=== PATIENT | female | born 1945 | race Caucasian/White ===

== ENCOUNTER 2021-09-05 17:20 | Inpatient (IN) | payer OTHER ==
[~2021-09-05] VITALS: Ht 167.6 cm; Wt 54.0 kg
[2021-09-05 17:24] VITALS: BP_SYST 98
--- NOTE | 2021-09-05 17:35 | NUR ---
Pt waiting for bed to become available. In gurney with medics.
--- NOTE | 2021-09-05 17:41 | NUR ---
Dr. Martinez assessing pt.
[2021-09-05 18:13] LABS: BASOPHILS % (AUTO) 0.2 % (0.0-2.0); EOSINOPHILS # (AUTO) 0.1 K/uL (0.0-0.4); EOSINOPHILS % (AUTO) 1.7 % (0.0-4.0); LYMPHOCYTES # (AUTO) 0.5 K/uL (1.0-5.5); MEAN CORPUSCULAR HEMOGLOBIN 29 pg (27-31); MEAN CORPUSCULAR HGB CONC 34 % (32-36); MEAN CORPUSCULAR VOLUME 85 fL (79.0-98.0); MONOCYTES # (AUTO) 0.5 K/uL (0.0-1.0); MONOCYTES % (AUTO) 9.6 % (1.7-9.3); NEUTROPHILS # (AUTO) 4.3 K/uL (1.8-7.7); NEUTROPHILS % (AUTO) 79.5 % (40.0-70.0); PLATELET COUNT (AUTO) 310 K/uL (130-430); RED BLOOD CELL COUNT(AUTO) 2.18 MIL/uL (4.2-6.2); RED CELL DISTRIBUTION WIDTH 17.2 % (9.0-15.0); WHITE BLOOD COUNT (AUTO) 5.4 K/uL (4.8-10.8)
[2021-09-05 18:34] LABS: HEMOGLOBIN 6.3 g/dL (12.0-16.0)
[2021-09-05 18:35] LABS: HEMATOCRIT 18.6 % (36-48)
[2021-09-05] MEDS ORDERED: KETAMINE 30 MG/3 ML SYRINGE IVP ONE (18:45)
[2021-09-05 18:46] LABS: ANION GAP 5 (5-15); CALCIUM 7.5 mg/dL (8.4-11.0); CHLORIDE 95 mmol/L (98-107); CREATININE 0.59 mg/dL (0.55-1.30); GLUCOSE 80 mg/dL (70-99); SODIUM SERUM 127 mmol/L (136-145); UREA NITROGEN, BLOOD 10 mg/dL (8-21)
[2021-09-05 18:50] LABS: ALANINE AMINOTRANSFERASE 8 U/L (12-78); ALBUMIN 1.8 g/dL (3.4-4.8); ASPARTATE AMINOTRANSFERASE 20 U/L (10-37); TOTAL BILIRUBIN 0.4 mg/dL (0.0-1.0)
--- NOTE | 2021-09-05 19:06 | NUR ---
Placed in room 03 . Placed on site monitor, blood pressure machine and pulse oximeter. To gown for exam. Side rails up.
[2021-09-05 19:35] LABS: INR 2.1 (0.8-1.2); PROTHROMBIN TIME 21.2 SECS (9.5-12.5)
[2021-09-05] MEDS ORDERED: HALOPERIDOL LACTATE 5 MG/ML VIAL IM ONE (19:45)
[2021-09-05] MEDS ORDERED: FLUT1DIS5 INH (20:34)
[2021-09-05] MEDS ORDERED: IBUP-1503 PO (20:34)
[2021-09-05] MEDS ORDERED: LIP40 PO (20:34)
[2021-09-05] MEDS ORDERED: ONDA4TAB11 PO (20:34)
[2021-09-05] MEDS ORDERED: CELE100C98 PO (20:34)
[2021-09-05] MEDS ORDERED: RIVA1PAT4 TD (20:34)
[2021-09-05] MEDS ORDERED: MUC20RT INH ×2 (20:34)
[2021-09-05] MEDS ORDERED: POTA-88 PO (20:34)
[2021-09-05] MEDS ORDERED: MONT10TA22 PO (20:34)
[2021-09-05] MEDS ORDERED: FLA250 PO (20:34)
[2021-09-05] MEDS ORDERED: DILT240C95 PO (20:34)
[2021-09-05] MEDS ORDERED: PANT40TA45 PO (20:34)
[2021-09-05] MEDS ORDERED: BUDE0.5A INH (20:34)
[2021-09-05] MEDS ORDERED: GLUC1KIT6 IM (20:34)
[2021-09-05] MEDS ORDERED: SER25 PO (20:34)
[2021-09-05] MEDS ORDERED: DEXT50IV12 (20:34)
[2021-09-05] MEDS ORDERED: GUAI-1197 PO (20:34)
[2021-09-05] MEDS ORDERED: CLON0.5T4 PO (20:34)
[2021-09-05] MEDS ORDERED: CARB1CAP7 PO (20:34)
[2021-09-05] MEDS ORDERED: DIGO125T20 PO (20:34)
[2021-09-05] MEDS ORDERED: IPRA3AMP9 INH (20:35)
[2021-09-05] MEDS ORDERED: LORA10TA68 PO (20:35)
[2021-09-05] MEDS ORDERED: DRON5CAP26 PO (20:35)
[2021-09-05] MEDS ORDERED: METO25TA6 PO (20:44)
[2021-09-05] MEDS ORDERED: LORA-1079 PO (20:44)
[2021-09-05] MEDS ORDERED: MELA1TAB17 PO (20:44)
--- NOTE | 2021-09-05 20:44 | NUR ---
Medication reconciliation completed with information provided by DEANNE BROCK. Any prior medication reconciliation on file was reviewed and corrected.
--- NOTE | 2021-09-05 21:24 | NUR ---
COVID AND MRSA sample collected and walked over to lab.
--- NOTE | 2021-09-05 21:28 | NUR ---
Blood transfusion consent form signed by daughter.
--- NOTE | 2021-09-05 21:49 | NUR ---
Admit bed requested Patient will be admitted to care of . Admitted to MED SURG unit. Diagnosis : ANEMIA Inpatient (Yes or No) Y Observation (Yes or No) Y Orientation concerns or request close to nursing station (Yes or No) Y Covid Status: PENDING On vent or bipap: N Isolation requirements: N From Home (Yes or if No enter name of facility) [facility] Med Rec Completed (Yes of No) Y
[2021-09-05] MEDS ORDERED: NALOXONE HCL 0.4 MG/ML AMP (NARCAN) IVP PRN ×2 (22:15)
[2021-09-05] MEDS ORDERED: ONDANSETRON HCL 4 MG/2 ML VIAL IVP PRN (22:15)
[2021-09-05] MEDS ORDERED: LORazepam 2 MG/ML VIAL IVP PRN (22:15)
[2021-09-05] MEDS ORDERED: HYDROcodone/ACETAMIN 5-325 MG TAB (NORCO/ VICODIN) PO PRN (22:15)
[2021-09-05] MEDS ORDERED: HYDROcodone/ACETAMIN 10-325 MG TAB PO PRN (22:15)
[2021-09-05] MEDS ORDERED: GLUCAGON,HUMAN RECOMBINANT 1 MG VIAL IM PRN (22:15)
[2021-09-05] MEDS ORDERED: IBUPROFEN 400 MG TABLET PO PRN (22:15)
[2021-09-05] MEDS ORDERED: NON-FORMULARY MEDICATION (Potassium Chloride 1 TAB) PO SCH (22:15)
[2021-09-05] MEDS ORDERED: guaiFENesin 200 MG/10 ML UDC PO PRN (22:15)
[2021-09-05] MEDS ORDERED: ACETAMINOPHEN 325 MG TABLET PO PRN (22:15)
[2021-09-05] MEDS ORDERED: IPRATROPIUM/ALBUTEROL SULFATE 3 ML AMPUL.NEB (DUONEB) INH PRN (22:15)
--- NOTE | 2021-09-05 23:57 | NUR ---
Patient will be admitted to care of MD Cortes. Admitted to MED SURG unit. Will go to room 112B. Only belongings left with patient are her reading glassess. Complete and up to date summary report printed. SBAR report to be given at bedside to ESTUARDO Pemberton with opportunity for questions.
[2021-09-06] VITALS (7 sets, daily range): BP systolic 103–155
--- NOTE | 2021-09-06 | NUR ---
Received Patient from ER for Inpatient A 76 years old female from [facility] [place] [facility]. Chief complain if low hemoglobin and hct count. Diagnosed with anemia. DNR code. Allergic to Sulfa drug. History of dementia, atrial fibrillation, hypertension, hyperlipidemia, Under the care of Dr. Cordelia Cortes. Patient's information gathered from the Daughter Nabila also the DPOA. Order reconciliation done by MD. Patient is in bed restless accompanied by the daughter at the moment. Received an order for 1 Pack blood transfusion. waiting for laboratory to be ready. Initial assessment done. Call light within reach.
--- NOTE | 2021-09-06 00:30 | NUR ---
[facility]. Reinserted new IV access line at the Left posterior forearm. 22 gauge.
--- NOTE | 2021-09-06 01:22 | NUR ---
CONSULT FOR DR. MCDOWELL I SPOKE TO [facility] EXCHANGE REASON FOR CONSULT: ANEMIA REQUESTING CONSULT: DR. MOOKIE Finley PRESSURE DISPATCHER PHONE NUMBER: [phone]
[2021-09-06] MEDS: D5NS 1,000 ML IV SCH ×3 (01:24→21:41)
--- NOTE | 2021-09-06 01:30 | NUR ---
CONSULT FOR DR. LEES I SPOKE WITH JOHN DODGE REASON FOR CONSULT: HYPONATREMIA REQUESTING CONSULT: DR. MOOKIE Finley BONE PULLER PHONE NUMBER: [phone]
--- NOTE | 2021-09-06 01:33 | NUR ---
CONSULT CALLED FOR DR. DAI I SPOKE TO JOHN DAR REASON FOR CONSULT: A FIB REQUESTING CONSULT: DR. Hilda Finley MANAGING CONSULTANT CLINICAL PROFESSOR PHONE NUMBER: [phone]
--- NOTE | 2021-09-06 01:34 | NUR ---
CONSULT CALLED FOR DR. BRITTANY FRANK SUPERVISOR SHUTTLE PREPARATION THIS MORNING REASON FOR CONSULT: ANEMIA REQUESTING CONSULT: DR. MOOKIE Finley CLIENT ENGAGEMENT SPECIALIST PHONE NUMBER: [phone]
--- NOTE | 2021-09-06 03:10 | NUR ---
Blood transfusion 1 unit Gave patient with 1 unit of blood taken from the laboratory. Double checked with Michela MARTE. Started time 03:15 AM. at 50 ML/hour 15 minute check- patient is stable no unusual or anaphylactic reaction from the transfusion. Increased the rate to 100 ML/hour. continue to monitor patient.
--- NOTE | 2021-09-06 06:52 | NUR ---
Blood transfusion done at 06:18am. Vitals signs. Temp 96.8 Pulse 83 RR 19 B/P 117/56
[2021-09-06] MEDS: ALBUTEROL SULFATE 0.083% 2.5 MG/3 ML VIAL.NEB INH SCH ×2 (07:41→13:47)
[2021-09-06] MEDS: BUDESONIDE 0.5 MG/2 ML AMPUL.NEB INH SCH (07:41)
[2021-09-06] MEDS: ACETYLCYSTEINE 20% 4 ML VIAL (RT) INH SCH (07:41)
[2021-09-06 08:31] LABS: BASOPHILS % (AUTO) 0.5 % (0.0-2.0); EOSINOPHILS # (AUTO) 0.1 K/uL (0.0-0.4); EOSINOPHILS % (AUTO) 2.4 % (0.0-4.0); HEMATOCRIT 22.3 % (36-48); HEMOGLOBIN 7.7 g/dL (12.0-16.0); LYMPHOCYTES # (AUTO) 0.4 K/uL (1.0-5.5); LYMPHOCYTES % (AUTO) 11.5 % (20.5-51.5); MEAN CORPUSCULAR HEMOGLOBIN 28 pg (27-31); MEAN CORPUSCULAR HGB CONC 34 % (32-36); MEAN CORPUSCULAR VOLUME 83 fL (79.0-98.0); MONOCYTES # (AUTO) 0.3 K/uL (0.0-1.0); MONOCYTES % (AUTO) 9.7 % (1.7-9.3); NEUTROPHILS # (AUTO) 2.7 K/uL (1.8-7.7); NEUTROPHILS % (AUTO) 75.9 % (40.0-70.0); PLATELET COUNT (AUTO) 360 K/uL (130-430); RED BLOOD CELL COUNT(AUTO) 2.71 MIL/uL (4.2-6.2); RED CELL DISTRIBUTION WIDTH 17.9 % (9.0-15.0); WHITE BLOOD COUNT (AUTO) 3.6 K/uL (4.8-10.8)
[2021-09-06 08:54] LABS: ANION GAP 8 (5-15); CALCIUM 7.3 mg/dL (8.4-11.0); CHLORIDE 101 mmol/L (98-107); CREATININE 0.47 mg/dL (0.55-1.30); GLUCOSE 97 mg/dL (70-99); POTASSIUM 3.4 mmol/L (3.5-5.1); SODIUM SERUM 136 mmol/L (136-145); UREA NITROGEN, BLOOD 7 mg/dL (8-21)
[2021-09-06] MEDS ORDERED: CARBIDOPA PO SCH (09:00)
[2021-09-06] MEDS ORDERED: LEVODOPA PO SCH (09:00)
[2021-09-06 09:08] LABS: TOTAL IRON BIND. CAPACITY 104 ug/dL (250-450)
[2021-09-06 09:14] LABS: ALANINE AMINOTRANSFERASE 8 U/L (12-78); ALBUMIN 1.8 g/dL (3.4-4.8); ASPARTATE AMINOTRANSFERASE 23 U/L (10-37); PHOSPHORUS 3.1 mg/dL (2.7-4.5); THYROID STIMULATING HORMONE 1.62 uIu/mL (0.36-3.74); TOTAL BILIRUBIN 0.5 mg/dL (0.0-1.0)
[2021-09-06] MEDS: LORATADINE 10 MG TABLET PO SCH (10:56)
[2021-09-06] MEDS: CELECOXIB 100 MG CAPSULE PO SCH ×2 (10:57→21:00)
[2021-09-06] MEDS: PANTOPRAZOLE SODIUM 40 MG TAB PO SCH (10:57)
[2021-09-06] MEDS: METOPROLOL TARTRATE 25 MG TABLET PO SCH (10:58)
[2021-09-06] MEDS: DIGOXIN 0.125 MG TABLET PO SCH (10:58)
[2021-09-06] MEDS: DILTIAZEM HCL 240 MG CAP.SR.24H PO SCH (10:59)
[2021-09-06] MEDS: RIVASTIGMINE 9.5 MG/24 HR PATCH.TD24 TD SCH (10:59)
[2021-09-06] MEDS: ATORVASTATIN 20 MG TABLET PO SCH (21:00)
[2021-09-06] MEDS: MONTELUKAST 10 MG TABLET PO SCH (21:00)
[2021-09-06] MEDS: QUEtiapine FUMARATE 25 MG TABLET PO SCH (21:00)
[2021-09-06] MEDS ORDERED: PYRIDOXINE HCL PO SCH (21:00)
[2021-09-06] MEDS ORDERED: MELATONIN PO SCH (21:00)
[2021-09-07] MEDS: ALBUTEROL SULFATE 0.083% 2.5 MG/3 ML VIAL.NEB INH SCH ×5 (00:39→20:05)
[2021-09-07] MEDS: ACETYLCYSTEINE 20% 4 ML VIAL (RT) INH SCH ×3 (00:39→20:06)
[2021-09-07] MEDS: BUDESONIDE 0.5 MG/2 ML AMPUL.NEB INH SCH ×3 (00:40→20:07)
[2021-09-07 01:33] VITALS: BP_SYST 97
[2021-09-07] MEDS: D5NS 1,000 ML IV SCH ×2 (04:15→15:28)
--- NOTE | 2021-09-07 07:30 | NUR ---
Closing Patient AOx0, no sign of distress noted. Not alert enough for oral intake. Sarabia in place draining cloudy sugey urine. UA collected and sent to lab. IV fluids infusing per order. Dressing to right scruggs changed. Fall and safety precautions in place.
[2021-09-07 07:42] LABS: BILIRUBIN,URINE NEGATIVE (NEGATIVE); BLOOD, URINE NEGATIVE (NEGATIVE); COLOR,URINE YELLOW (YELLOW); GLUCOSE,URINE NEGATIVE (NEGATIVE); KETONES,URINE NEGATIVE (NEGATIVE); LEUKOCYTE ESTERASE ,URINE 2+ (NEGATIVE); NITRITE, URINE POSITIVE (NEGATIVE); PROTEIN URINE TRACE (NEGATIVE); UROBILINOGEN,URINE 0.2 (0.2-1.0)
[2021-09-07 07:46] LABS: CLARITY/URINE HAZY (CLEAR)
[2021-09-07 07:51] LABS: BASOPHILS % (AUTO) 0.4 % (0.0-2.0); EOSINOPHILS # (AUTO) 0.1 K/uL (0.0-0.4); EOSINOPHILS % (AUTO) 2.2 % (0.0-4.0); HEMATOCRIT 23.2 % (36-48); HEMOGLOBIN 7.9 g/dL (12.0-16.0); LYMPHOCYTES # (AUTO) 0.6 K/uL (1.0-5.5); LYMPHOCYTES % (AUTO) 14.5 % (20.5-51.5); MEAN CORPUSCULAR HEMOGLOBIN 29 pg (27-31); MEAN CORPUSCULAR HGB CONC 34 % (32-36); MEAN CORPUSCULAR VOLUME 84 fL (79.0-98.0); MONOCYTES # (AUTO) 0.5 K/uL (0.0-1.0); MONOCYTES % (AUTO) 10.8 % (1.7-9.3); NEUTROPHILS # (AUTO) 3.1 K/uL (1.8-7.7); NEUTROPHILS % (AUTO) 72.1 % (40.0-70.0); PLATELET COUNT (AUTO) 461 K/uL (130-430); RED BLOOD CELL COUNT(AUTO) 2.75 MIL/uL (4.2-6.2); RED CELL DISTRIBUTION WIDTH 18.6 % (9.0-15.0); RETICULOCYTE COUNT 0.4 % (0.5-1.5); WHITE BLOOD COUNT (AUTO) 4.3 K/uL (4.8-10.8)
[2021-09-07 07:53] LABS: BACTERIA,URINE MANY /HPF (None Seen); WBC,URINE 20-50 /HPF (0-3)
[2021-09-07 08:03] LABS: ANION GAP 8 (5-15); CALCIUM 7.1 mg/dL (8.4-11.0); CHLORIDE 107 mmol/L (98-107); CREATININE 0.47 mg/dL (0.55-1.30); GLUCOSE 148 mg/dL (70-99); POTASSIUM 3.2 mmol/L (3.5-5.1); SODIUM SERUM 139 mmol/L (136-145); UREA NITROGEN, BLOOD 6 mg/dL (8-21)
[2021-09-07 08:12] LABS: ALANINE AMINOTRANSFERASE 19 U/L (12-78); ALBUMIN 1.6 g/dL (3.4-4.8); ASPARTATE AMINOTRANSFERASE 18 U/L (10-37); TOTAL BILIRUBIN 0.2 mg/dL (0.0-1.0)
[2021-09-07 08:16] LABS: INR 1.9 (0.8-1.2); PROTHROMBIN TIME 18.7 SECS (9.5-12.5)
--- NOTE | 2021-09-07 08:22 | NUR ---
Received patient in bed resting comfortably, AAOX0. No s/sx pain or discomfort. Respirations are non-labored. Skin is clean,warm and dry to touch. IV access is patent, dry and secure, no s/sx of redness or swelling observed. Bed is locked in lowest position, call light in reach. Nurse will continue care and monitor for changes in status.
[2021-09-07 08:26] VITALS: BP_SYST 107
[2021-09-07] MEDS: PANTOPRAZOLE SODIUM 40 MG TAB PO SCH (09:00)
[2021-09-07] MEDS: RIVASTIGMINE 9.5 MG/24 HR PATCH.TD24 TD SCH (09:00)
[2021-09-07] MEDS: DIGOXIN 0.125 MG TABLET PO SCH (09:00)
[2021-09-07] MEDS: METOPROLOL TARTRATE 25 MG TABLET PO SCH (09:00)
[2021-09-07] MEDS: LORATADINE 10 MG TABLET PO SCH (09:00)
[2021-09-07] MEDS: DILTIAZEM HCL 240 MG CAP.SR.24H PO SCH (09:00)
[2021-09-07] MEDS: CELECOXIB 100 MG CAPSULE PO SCH ×2 (09:00→21:00)
--- NOTE | 2021-09-07 11:54 | NUR ---
Patient in bed resting comfortably. No c/o pain or discomfort. Respirations are non-labored. Skin is clean,warm and dry to touch. IV access is patent, dry and secure, no s/sx of redness or swelling observed. Bed is locked in lowest position, call light in reach. Nurse will continue care and monitor for changes in status.
[2021-09-07] MEDS: cefTRIAXone 1 GM IVPB PREMIX 50 ML IV SCH (12:22)
[2021-09-07 12:39] VITALS: BP_SYST 124
[2021-09-07] MEDS: RYTARY PO SCH ×2 (13:07→21:00)
[2021-09-07 13:08] LABS: FERRITIN 1273 ng/mL (15-150)
[2021-09-07 16:53] VITALS: BP_SYST 139
[2021-09-07] MEDS ORDERED: POTASSIUM CHLORIDE 20 MEQ TAB.PRT.SR PO ONE (17:45)
--- NOTE | 2021-09-07 19:10 | NUR ---
Patient in bed resting comfortably. No c/o pain or discomfort. Respirations are non-labored. Skin is clean,warm and dry to touch. IV access is patent, dry and secure, no s/sx of redness or swelling observed. Bed is locked in lowest position, call light in reach. Nurse endorse patient to assistant shift supervisor for continue care and monitor for changes in status.
--- NOTE | 2021-09-07 19:30 | NUR ---
PM OPENING NOTES VERBAL REPORT RECEIVED FROM AM NURSE. REPORTED HOSPICE CARE ASSESSMENT COMPLETED. POSSIBLE D/C HOME FOR TOMORROW. PT DENIES PAIN. NOT SWALLOWING. PO MEDS HELD. LOCATED IN ROOM 105 B FROM 112 B. CONTINUE TO MONITOR AND ASSIST NEEDED. NO ACUTE DISTRESS NOTED.
[2021-09-07 20:00] VITALS: BP_SYST 129
[2021-09-07] MEDS: QUEtiapine FUMARATE 25 MG TABLET PO SCH (21:00)
[2021-09-07] MEDS: MONTELUKAST 10 MG TABLET PO SCH (21:00)
[2021-09-07] MEDS: ATORVASTATIN 20 MG TABLET PO SCH (21:00)
[2021-09-08] MEDS: ALBUTEROL SULFATE 0.083% 2.5 MG/3 ML VIAL.NEB INH SCH ×2 (01:00→07:45)
[2021-09-08 02:03] VITALS: BP_SYST 139
--- NOTE | 2021-09-08 03:16 | NUR ---
Patient report received from ESTUARDO Cardenas.patient sleep comfortable in her bed. no pain complain , medications were not given .bed is low position , call light within reach.
[2021-09-08] MEDS: D5NS 1,000 ML IV SCH (06:59)
[2021-09-08 07:06] LABS: FOLATE (FOLIC ACID) 5.7 ng/mL (>3.0)
--- NOTE | 2021-09-08 07:22 | NUR ---
Received patient in bed resting comfortably, AAOX1. No s/sx pain or discomfort. Respirations are non-labored. Skin is clean,warm and dry to touch. IV access is patent, dry and secure, no s/sx of redness or swelling observed. Bed is locked in lowest position, call light in reach. Nurse will continue care and monitor for changes in status.
[2021-09-08] MEDS: ACETYLCYSTEINE 20% 4 ML VIAL (RT) INH SCH (07:45)
[2021-09-08] MEDS: BUDESONIDE 0.5 MG/2 ML AMPUL.NEB INH SCH (08:10)
[2021-09-08 08:13] VITALS: BP_SYST 127
[2021-09-08] MEDS: DILTIAZEM HCL 240 MG CAP.SR.24H PO SCH (08:16)
[2021-09-08] MEDS: CELECOXIB 100 MG CAPSULE PO SCH (08:17)
[2021-09-08] MEDS: DIGOXIN 0.125 MG TABLET PO SCH (08:17)
[2021-09-08] MEDS: LORATADINE 10 MG TABLET PO SCH (08:17)
[2021-09-08] MEDS: METOPROLOL TARTRATE 25 MG TABLET PO SCH (08:17)
[2021-09-08] MEDS: RYTARY PO SCH (08:18)
[2021-09-08] MEDS: RIVASTIGMINE 9.5 MG/24 HR PATCH.TD24 TD SCH (08:18)
[2021-09-08] MEDS: PANTOPRAZOLE SODIUM 40 MG TAB PO SCH (08:18)
[2021-09-08 09:40] VITALS: BP_SYST 127
[2021-09-08] MEDS: cefTRIAXone 1 GM IVPB PREMIX 50 ML IV SCH (11:16)
--- NOTE | 2021-09-08 11:52 | NUR ---
Patient in bed resting comfortably. No S/SX pain or discomfort. Respirations are non-labored. Skin is clean,warm and dry to touch. IV access is patent, dry and secure, no s/sx of redness or swelling observed. Bed is locked in lowest position, call light in reach. Nurse will continue care and monitor for changes in status.
[2021-09-08 13:09] VITALS: BP_SYST 141
--- NOTE | 2021-09-08 13:38 | NUR ---
Patient given discharge and follow up instructions, patient has all personal belongings Patient in bed resting comfortably. No c/o pain or discomfort. Respirations are non-labored. Skin is clean, warm and dry to touch. IV access discontinued, no s/sx of redness or swelling observed. Patient transported by [facility] to home on 2LPM via nasal cannula for continued care and comfort.
== END 2021-09-08 13:20 | disposition hospice, home (50) | DRG 812 ==
LOC: SED 17:20 → SMU 21:42
PROVIDERS: ADMIT Preventive Medicine Preventive Medicine/Occupational Environmental Medicine; ATTEND Preventive Medicine Preventive Medicine/Occupational Environmental Medicine
PROC: 30233N1 Transfusion of Nonautologous Red Blood Cells into Peripheral Vein, Percutaneous Approach (ICD-10-PCS; principal; 2021-09-06)
DX: D46.9 Myelodysplastic syndrome, unspecified (principal); E87.0 Hyperosmolality and hypernatremia; I48.20 Chronic atrial fibrillation, unspecified; N39.0 Urinary tract infection, site not specified; E78.5 Hyperlipidemia, unspecified; F02.80 Dementia in other diseases classified elsewhere, unspecified severity, without behavioral disturbance, psychotic disturbance, mood disturbance, and anxiety; G20 Parkinson's disease; I10 Essential (primary) hypertension; J44.9 Chronic obstructive pulmonary disease, unspecified; Z66 Do not resuscitate; Z74.01 Bed confinement status; Z79.01 Long term (current) use of anticoagulants; Z90.710 Acquired absence of both cervix and uterus; Z88.8 Allergy status to other drugs, medicaments and biological substances
CPT/HCPCS: 36415; 36430; 71045; 76700-TC; 80053; 81000; 82272; 82607; 82728; 82746; 83010; 83540; 83550; 83735; 84100; 84443; 84484; 85025; 85044; 85610-TC; 85730-TC; 86886; 86900; 86901; 86920; 87081; 87086; 93005; 93306; 94640; 94760; 96372; 99285; J0696; J1630; J2060; J7608; J7613; J7626; P9021; Q0167